=== PATIENT | female | born 1980 | race Caucasian/White ===

== ENCOUNTER → 2020-03-14 13:50 | Outpatient (BNVA) | payer OTHER, SELFPAY | PROVIDERS: Visit Provider Obstetrics & Gynecology | DX: Z12.4 Encounter for screening for malignant neoplasm of cervix (principal); N94.3 Premenstrual tension syndrome | CPT/HCPCS: 84146; 84443; 88175 ==

== ENCOUNTER 2020-03-22 14:38 | Outpatient (CLI) | payer OTHER, SELFPAY ==
--- NOTE | 2020-03-22 14:30 | MR_ITS ---
WS: [id number] MRI BRAIN WITHOUT AND WITH CONTRAST, ATTENTION DIRECTED TO THE PITUITARY GLAND HISTORY: Hyperprolactinemia COMPARISON: None available. TECHNIQUE: Diffusion-weighted imaging, axial T2 sequence, and postcontrast images in 3 planes are per formed. High-resolution coronal and sagittal imaging performed through the pituitary region with and without intravenous gadolinium. Normal appearance of the pituitary gland. There are no masses or abnormal enhancement. Optic chiasm a nd infundibulum are normal position with no abnormal enhancement. There are no acute infarcts, hemorrhage or mass effect. No enhancing masses or chronic microvascular ischemic disease. No inferior displacement of cerebellar tonsils. Orbits and globes are normal. Visua lized postcontrast imaging is negative. Paranasal sinuses, mastoid air cells and calvarium and scalp are negative. MR/MR pituitary wo/w con* [id number] IMPRESSION: Normal MRI brain with contrast. Normal pituitary gland.
== END 2020-03-22 14:39 | disposition home or self-care (01) ==
LOC: RADWPI 14:42 → RADSHAW 14:45
PROVIDERS: PCP Family Medicine; Visit Provider Obstetrics & Gynecology
DX: E22.1 Hyperprolactinemia (principal)
CPT/HCPCS: 70553; A9579

== ENCOUNTER → 2020-07-25 18:00 | Outpatient (BNVA) | payer OTHER, SELFPAY | PROVIDERS: PCP Family Medicine; Visit Provider Nurse Practitioner Family | DX: M79.89 Other specified soft tissue disorders (principal); R60.0 Localized edema; I10 Essential (primary) hypertension | CPT/HCPCS: 80053 ==